=== PATIENT | male | born 1950 | race Caucasian/White ===

== ENCOUNTER 2016-11-28 15:24 | Emergency (ER) | payer MEDICARE, BC ==
[~2016-11-28] VITALS: Ht 170.2 cm; Wt 85.2 kg
[2016-11-28] MEDS ORDERED: SODIUM CHLORIDE FLUSH 10ML SYR IVF ONE ×2 (16:00→16:30)
[2016-11-28 16:16] LABS: BLOOD UREA NITROGEN 18 mg/dL (7-18)
[2016-11-28 16:22] LABS: IS PT STATUS REG ER OR PRE ER? YES
[2016-11-28] MEDS ORDERED: SODIUM CHLORIDE 0.9% 1,000ML IVBOLUS ONE (16:30)
[2016-11-28 16:56] LABS: DIFF TOTAL CELLS COUNTED 100 CELL DIFF
[2016-11-28 16:59] LABS: GIANT PLATELETS 1+
[2016-11-28 17:04] LABS: VERIFY COUNTS? YES
[2016-11-28 17:24] VITALS: BP 124/76
== END 2016-11-28 17:26 | disposition home or self-care (01) ==
LOC: ED 16:36
DX: R42 Dizziness and giddiness (principal)
CPT/HCPCS: 36415; 71010; 80048; 82040; 84439; 84443; 84484; 85025; 93005; 96360; 99285; J7030

== ENCOUNTER 2016-12-05 13:43 | Emergency (ER) | payer MEDICARE, BC ==
[~2016-12-05] VITALS: Ht 170.2 cm; Wt 83.0 kg
[2016-12-05] MEDS ORDERED: LISI1TAB3 PO (14:16)
[2016-12-05] MEDS ORDERED: LOSA1TAB16 PO (14:20)
[2016-12-05] MEDS ORDERED: LISI5TAB7 PO (14:20)
[2016-12-05] MEDS ORDERED: [UNRECOGNIZED DRUG - REMARK] PO (14:48)
[2016-12-05] MEDS ORDERED: SODIUM CHLORIDE FLUSH 10ML SYR IVF ONE (15:00)
[2016-12-05 15:39] LABS: BLOOD UREA NITROGEN 20 mg/dL (7-18)
[2016-12-05 15:45] LABS: ASPARTATE AMINO TRANSFERASE 26 U/L (15-37)
[2016-12-05 15:46] LABS: IS PT STATUS REG ER OR PRE ER? YES
[2016-12-05 17:11] VITALS: BP 104/66
[2016-12-05] MEDS ORDERED: GADOBUTROL 7.5 MMOL/7.5 ML PFS ONE (19:03)
== END 2016-12-05 17:40 | disposition home or self-care (01) ==
LOC: ED 14:38
DX: R42 Dizziness and giddiness (principal)
CPT/HCPCS: 36415; 70553; 80053; 81003; 83605; 84484; 85025; 93005; 99285; A9585

== ENCOUNTER → 2017-02-03 | Outpatient (CLI) | payer MEDICARE, BC ==
[~2017-02-03] MED LIST: LISI1TAB3 PO; LISI5TAB7 PO; LOSA1TAB16 PO; [UNRECOGNIZED DRUG - REMARK] PO
== END | disposition home or self-care (01) ==
LOC: CVU 11:31
PROVIDERS: ATTEND Internal Medicine Cardiovascular Disease
DX: I37.1 Nonrheumatic pulmonary valve insufficiency (principal); I49.3 Ventricular premature depolarization; I10 Essential (primary) hypertension
CPT/HCPCS: 93306

== ENCOUNTER 2017-04-14 06:44 | Day surgery (SDC) | payer MEDICARE, BC ==
[2017-04-13 09:45] VITALS: BP 161/104
[2017-04-13 10:11] LABS: HEMATOCRIT 47.1 % (39.2-51.8); HEMOGLOBIN 16.2 g/dL (13.7-18.0); WHITE BLOOD COUNT 7.8 x10^3/uL (3.4-10)
[2017-04-13 10:24] LABS: ASPARTATE AMINO TRANSFERASE 23 U/L (15-37); BLOOD UREA NITROGEN 12 mg/dL (7-18)
[~2017-04-14] VITALS: Ht 170.2 cm; Wt 86.4 kg
[~2017-04-14 06:44] MED LIST changes: -LOSA1TAB16 PO; +LOSA1TAB19 PO; +METO25TA35 PO
[2017-04-14] MEDS ORDERED: SODIUM CHLORIDE 0.9% 1,000 ML IV SCH (06:56)
[2017-04-14] MEDS ORDERED: LIDOCAINE 2%, 20ML ONE (08:08)
[2017-04-14] MEDS ORDERED: FENTANYL PF 100 MCG/2ML ONE ×2 (08:09→08:11)
[2017-04-14] MEDS ORDERED: ISOPROTERENOL 0.2MG/ML, 5ML ONE (08:10)
[2017-04-14] MEDS ORDERED: MIDAZOLAM 1 MG/ML, 5ML ONE (08:10)
[2017-04-14] MEDS ORDERED: ADENOSINE 6 MG/2 ML ONE (08:10)
[2017-04-14] MEDS ORDERED: HEPARIN 1,000 UNITS/ML, 10ML ONE (09:22)
[2017-04-14] MEDS ORDERED: PROTAMINE SULFATE 10 MG/ML, 5ML ONE (11:08)
[2017-04-14] MEDS ORDERED: ACETAMINOPHEN 325 MG TABLET PO PRN (11:30)
[2017-04-15] MEDS ORDERED: METOPROLOL TARTRATE 25 MG TABLET PO SCH (09:00)
[2017-04-15] MEDS ORDERED: LISINOPRIL 5 MG TABLET PO SCH (09:00)
== END 2017-04-14 16:23 | disposition home or self-care (01) ==
LOC: CACL 06:44
PROVIDERS: ATTEND Internal Medicine Cardiovascular Disease
DX: I47.2 Ventricular tachycardia (principal); I10 Essential (primary) hypertension; E78.5 Hyperlipidemia, unspecified; I49.3 Ventricular premature depolarization
CPT/HCPCS: 36415; 71020; 80053; 85025; 85347; 93623; 93654; 93662; 99156; 99157; C1730; C1759; C1760; C1769; C1894; C2630; J1644; J2250; J2720; J3010; J3490; Q9967; J0153

== ENCOUNTER → 2017-11-25 | Outpatient (CLI) | payer MEDICARE, BC ==
[~2017-11-25] MED LIST changes: +CHOL500022 PO; +SOTA80TA18 PO
[2017-11-25 12:47] LABS: ALBUMIN 3.9 g/dL (3.4-5.0); BILIRUBIN, DIRECT 0.1 mg/dL (0.1-0.2)
[2017-11-25 12:49] LABS: BILIRUBIN,INDIRECT 0.5 mg/dL (0.0-2.0); BILIRUBIN,TOTAL 0.6 mg/dL (0.2-1.0); CHOL/HDL RATIO 5.1; LDL/HDL RATIO 3.2 (0.5-3.0); TOTAL PROTEIN 7.4 g/dL (6.4-8.2)
== END | disposition home or self-care (01) ==
LOC: CFH 08:14
PROVIDERS: ATTEND Internal Medicine Cardiovascular Disease
DX: E78.2 Mixed hyperlipidemia (principal)
CPT/HCPCS: 36415; 80061; 80076

== ENCOUNTER 2018-01-13 16:15 | Emergency (ER) | payer MEDICARE, BC ==
[~2018-01-13] VITALS: Ht 170.2 cm; Wt 90.1 kg
[2018-01-13 16:28] VITALS: BP 146/94
[2018-01-13] MEDS ORDERED: OXYcodone/APAP 5/325MG TABLET PO ONE (17:00)
[2018-01-13 17:07] LABS: BASOPHILS # (AUTO) 0.12 x10^3/uL (0-0.1); BASOPHILS % (AUTO) 1 % (0-1); EOSINOPHILS % (AUTO) 4 % (1-7); LYMPHOCYTES % (AUTO) 20 % (22-44); MD NO; MEAN CORPUSCULAR HGB CONC 34.7 g/dL (33.2-36.2); MEAN CORPUSCULAR VOLUME 92.4 fL (81-97); MEAN PLATELET VOLUME 12.4 fL (7.4-10.4); MONOCYTES # (AUTO) 1.18 x10^3/uL (0.2-0.8); MONOCYTES % (AUTO) 11 % (2-9); NEUTROPHILS # (AUTO) 6.93 x10^3/uL (1.8-6.8); NEUTROPHILS % (AUTO) 64 % (42-75); PLATELET COUNT 155 x10^3/uL (130-400); RED CELL DISTRIBUTION WIDTH 14.1 % (9.4-14.8)
[2018-01-13 17:09] LABS: HCT (SEDRATE) 40.6 % (39.2-51.8)
[2018-01-13 17:14] LABS: ALBUMIN 3.7 g/dL (3.4-5.0); ANION GAP 9 mmol/L (5-15); CHLORIDE 109 mmol/L (98-107)
[2018-01-13 17:16] LABS: ALANINE AMINOTRANSFERASE 29 U/L (12-78); ALKALINE PHOSPHATASE 47 U/L (45-117); BILIRUBIN,TOTAL 0.5 mg/dL (0.2-1.0); CREATININE 0.93 mg/dL (0.7-1.3); TOTAL PROTEIN 6.8 g/dL (6.4-8.2)
[2018-01-13] MEDS ORDERED: OXYcodone/APAP 5/325MG TABLET ONE (17:59)
== END 2018-01-13 19:01 | disposition home or self-care (01) ==
LOC: ED 18:57
DX: M79.671 Pain in right foot (principal)
CPT/HCPCS: 36415; 80053; 84550; 85025; 85651; 99285

== ENCOUNTER → 2018-03-08 | Outpatient (CLI) | payer MEDICARE, BC ==
[2018-03-08 12:20] LABS: ALBUMIN 4.1 g/dL (3.4-5.0); BILIRUBIN, DIRECT 0.1 mg/dL (0.1-0.2); BILIRUBIN,INDIRECT 0.3 mg/dL (0.0-2.0); BILIRUBIN,TOTAL 0.4 mg/dL (0.2-1.0); CHOL/HDL RATIO 4.7; LDL/HDL RATIO 2.6 (0.5-3.0); TOTAL PROTEIN 7.4 g/dL (6.4-8.2)
== END | disposition home or self-care (01) ==
LOC: CFH 09:03
PROVIDERS: ATTEND Internal Medicine Cardiovascular Disease
DX: E78.2 Mixed hyperlipidemia (principal)
CPT/HCPCS: 36415; 80061; 80076

== ENCOUNTER → 2018-05-26 | Outpatient (CLI) | payer MEDICARE, BC ==
[2018-05-26 13:11] LABS: BILIRUBIN, DIRECT 0.2 mg/dL (0.1-0.2)
[2018-05-26 13:13] LABS: BILIRUBIN,INDIRECT 0.4 mg/dL (0.0-2.0); BILIRUBIN,TOTAL 0.6 mg/dL (0.2-1.0); TOTAL PROTEIN 7.2 g/dL (6.4-8.2)
[2018-05-26 13:14] LABS: LDL/HDL RATIO 2.4 (0.5-3.0)
== END | disposition home or self-care (01) ==
LOC: CFH 08:59
PROVIDERS: ATTEND Internal Medicine Cardiovascular Disease
DX: E78.2 Mixed hyperlipidemia (principal)
CPT/HCPCS: 36415; 80061; 80076

== ENCOUNTER → 2018-09-07 | Outpatient (CLI) | payer MEDICARE, BC ==
[2018-09-07 12:47] LABS: CHLORIDE 110 mmol/L (98-107)
[2018-09-07 12:56] LABS: ALANINE AMINOTRANSFERASE 32 U/L (12-78); ALBUMIN 4.2 g/dL (3.4-5.0); ALKALINE PHOSPHATASE 40 U/L (45-117); ANION GAP 5 mmol/L (5-15); BILIRUBIN,TOTAL 0.5 mg/dL (0.2-1.0); CHOL/HDL RATIO 3.3; CHOLESTEROL, TOTAL 183 mg/dL (140-239); HDL CHOL % 31 % (26-37); HDL CHOLESTEROL (DIRECT) 56 mg/dL (40-60); LDL CHOLESTEROL,CALCULATED 105 mg/dL (54-169); LDL/HDL RATIO 1.9 (0.5-3.0); PSA SCREEN 3.01 ng/mL (0.00-4.00); TOTAL PROTEIN 7.2 g/dL (6.4-8.2); TRIGLYCERIDES 112 mg/dL (50-200); VLDL CHOLESTEROL 22 mg/dL (0-25)
[2018-09-07 13:00] LABS: MICROSCOPIC NOT IND
[2018-09-07 13:08] LABS: BASOPHILS # (AUTO) 0.05 x10^3/uL (0-0.1); BASOPHILS % (AUTO) 1 % (0-1); EOSINOPHILS # (AUTO) 0.21 x10^3/uL (0-0.4); EOSINOPHILS % (AUTO) 3 % (1-7); LYMPHOCYTES # (AUTO) 2.23 x10^3/uL (1-3.4); LYMPHOCYTES % (AUTO) 34 % (22-44); MD SCAN; MEAN CORPUSCULAR HEMOGLOBIN 30.7 pg (27.5-34.5); MEAN CORPUSCULAR HGB CONC 33.8 g/dL (33.2-36.2); MEAN CORPUSCULAR VOLUME 90.8 fL (81-97); MEAN PLATELET VOLUME 13.6 fL (7.4-10.4); MONOCYTES # (AUTO) 0.64 x10^3/uL (0.2-0.8); MONOCYTES % (AUTO) 10 % (2-9); NEUTROPHILS % (AUTO) 53 % (42-75); PLATELET COUNT 184 x10^3/uL (130-400); RED BLOOD COUNT 4.93 x10^6/uL (4.38-5.82); RED CELL DISTRIBUTION WIDTH 13.9 % (9.4-14.8)
[2018-09-07 13:18] LABS: HEMOGLOBIN A1C 5.8 % (4.2-6.3)
== END | disposition home or self-care (01) ==
LOC: CFH 09:14
PROVIDERS: ATTEND Internal Medicine
DX: Z12.5 Encounter for screening for malignant neoplasm of prostate (principal); I10 Essential (primary) hypertension; E78.2 Mixed hyperlipidemia; M10.071 Idiopathic gout, right ankle and foot; M25.511 Pain in right shoulder; M54.5 Low back pain; I49.3 Ventricular premature depolarization; R73.01 Impaired fasting glucose
CPT/HCPCS: 36415; 80053; 80061; 81003; 83036; 84550; 85025; G0103

== ENCOUNTER → 2018-10-11 | Outpatient (CLI) | payer MEDICARE, BC | END | disposition home or self-care (01) | LOC: CFH 11:39 | PROVIDERS: ATTEND Internal Medicine Cardiovascular Disease | DX: I08.1 Rheumatic disorders of both mitral and tricuspid valves (principal); I11.9 Hypertensive heart disease without heart failure | CPT/HCPCS: 78452; 93017; 93306; A9502 ==

== ENCOUNTER → 2019-05-05 | Outpatient (CLI) | payer MEDICARE, BC ==
[~2019-05-05] MED LIST changes: +LISI1TAB23 PO; -LISI1TAB3 PO
[2019-05-05 13:30] LABS: CHLORIDE 110 mmol/L (98-107)
[2019-05-05 13:47] LABS: ALANINE AMINOTRANSFERASE 33 U/L (12-78); ALBUMIN 4.3 g/dL (3.4-5.0); ALKALINE PHOSPHATASE 38 U/L (45-117); ANION GAP 6 mmol/L (5-15); BILIRUBIN,TOTAL 0.5 mg/dL (0.2-1.0); CALCIUM 9.1 mg/dL (8.5-10.1); CHOL/HDL RATIO 4.5; CHOLESTEROL, TOTAL 209 mg/dL (140-239); CREATININE 0.99 mg/dL (0.7-1.3); HDL CHOL % 22 % (26-37); HDL CHOLESTEROL (DIRECT) 46 mg/dL (40-60); LDL CHOLESTEROL,CALCULATED 138 mg/dL (54-169); TOTAL PROTEIN 7.4 g/dL (6.4-8.2); TRIGLYCERIDES 124 mg/dL (50-200); VLDL CHOLESTEROL 25 mg/dL (0-25)
== END | disposition home or self-care (01) ==
LOC: CFH 07:55
PROVIDERS: ATTEND Internal Medicine
DX: E78.2 Mixed hyperlipidemia (principal); M54.5 Low back pain; I11.9 Hypertensive heart disease without heart failure; M10.071 Idiopathic gout, right ankle and foot; R73.03 Prediabetes; F10.20 Alcohol dependence, uncomplicated
CPT/HCPCS: 36415; 80053; 80061; 84550

== ENCOUNTER → 2020-01-25 | Outpatient (CLI) | payer MEDICARE, BC ==
[2020-01-25 13:02] LABS: CHLORIDE 111 mmol/L (98-107)
[2020-01-25 13:12] LABS: ALANINE AMINOTRANSFERASE 27 U/L (12-78); ALBUMIN 4.1 g/dL (3.4-5.0); ALKALINE PHOSPHATASE 34 U/L (45-117); ANION GAP 5 mmol/L (5-15); BILIRUBIN,TOTAL 0.7 mg/dL (0.2-1.0); CALCIUM 8.9 mg/dL (8.5-10.1); CREATININE 0.93 mg/dL (0.7-1.3); TOTAL PROTEIN 6.9 g/dL (6.4-8.2); TRIGLYCERIDES 89 mg/dL (50-200)
[2020-01-25 13:13] LABS: CHOL/HDL RATIO 3.4; CHOLESTEROL, TOTAL 172 mg/dL (140-239); HDL CHOL % 30 % (26-37); HDL CHOLESTEROL (DIRECT) 51 mg/dL (40-60); LDL CHOLESTEROL,CALCULATED 103 mg/dL (54-169); VLDL CHOLESTEROL 18 mg/dL (0-25)
== END | disposition home or self-care (01) ==
LOC: CFH 08:04
PROVIDERS: ATTEND Internal Medicine Cardiovascular Disease
DX: E78.2 Mixed hyperlipidemia (principal)
CPT/HCPCS: 36415; 80053; 80061

== ENCOUNTER → 2020-10-17 | Outpatient (CLI) | payer MEDICARE, BC | END | disposition home or self-care (01) | LOC: CFH 13:38 | PROVIDERS: ATTEND Internal Medicine Cardiovascular Disease | DX: I08.0 Rheumatic disorders of both mitral and aortic valves (principal); I10 Essential (primary) hypertension; R06.02 Shortness of breath | CPT/HCPCS: 93306 ==